=== PATIENT | female | born 1930 | race Caucasian/White ===

== ENCOUNTER 2017-05-07 11:41 | Emergency (ER) | payer MEDICARE, BC ==
--- NOTE | 2017-05-07 12:11 | EDM.PDOC ---
ED HPI GENERAL MEDICAL PROBLEM - General Chief Complaint: Abdominal Pain Stated Complaint: [id number] BAD PAIN IN RIGHT SIDE Time Seen by Provider: 05/07/17 12:04 Source of Information: Reports: Patient - History of Present Illness INITIAL COMMENTS - FREE TEXT/NARRATIVE: 86 yo white female c/o low abdomen pain since last night. Onset Date: 05/06/17 Onset Time: 12:00 Duration: Hour(s): Location: Reports: Abdomen Quality: Reports: Ache Severity: Moderate Associated Symptoms: Reports: No Other Symptoms Right Lower Abdomen Pain Score (Numeric/FACES): 3 - Related Data Allergies Allergy/AdvReac Type Severity Reaction Status Date / Time alendronate sodium Allergy Unknown UNKNOWN Verified 05/07/17 13:53 [From Fosamax] codeine Allergy Unknown UNKNOWN Verified 05/07/17 13:53 raloxifene HCl [From Evista] Allergy Unknown UNKNOWN Verified 05/07/17 13:53 risedronate sodium Allergy Unknown UNKNOWN Verified 05/07/17 13:53 [From Actonel] Sulfa (Sulfonamide Allergy Unknown UNKNOWN Verified 05/07/17 13:53 Antibiotics) Home Meds: Home Meds Lisinopril [Lisinopril] 10 mg PO DAILY 05/07/17 [History] Metoprolol Succinate [Toprol XL] 25 mg PO DAILY 05/07/17 [History] Triamcinolone Acetonide [Triamcinolone Acetonide 0.1% Oint] 1 dose TOP ASDIRECTED 05/07/17 [History] hydrOXYzine HCl [Atarax] 25 mg PO TID PRN 05/07/17 [History] Past Medical History HEENT History: Reports: None Cardiovascular History: Reports: Hypertension Respiratory History: Reports: None Gastrointestinal History: Reports: None Genitourinary History: Reports: None BACK PANEL PADDER History: Reports: None Musculoskeletal History: Reports: None Neurological History: Reports: None Psychiatric History: Reports: None Endocrine/Metabolic History: Reports: None Hematologic History: Reports: None Immunologic History: Reports: None Oncologic (Cancer) History: Reports: None Dermatologic History: Reports: None - Infectious Disease History Infectious Disease History: Reports: Chicken Pox, Measles, Mumps - Past Surgical History Head Surgeries/Procedures: Reports: None GI Surgical History: Reports: Cholecystectomy Social & Family History - Tobacco Use Smoking Status *Q: Never Smoker Second Hand Smoke Exposure: No - Caffeine Use Caffeine Use: Reports: Coffee, Soda - Recreational Drug Use Recreational Drug Use: No ED ROS GENERAL - Review of Systems Review Of Systems: See Below Constitutional: Reports: No Symptoms HEENT: Reports: No Symptoms Respiratory: Reports: No Symptoms Cardiovascular: Reports: No Symptoms Endocrine: Reports: No Symptoms GI/Abdominal: Reports: Abdominal Pain (low abdomen) : Reports: No Symptoms Musculoskeletal: Reports: No Symptoms Skin: Reports: No Symptoms Neurological: Reports: No Symptoms Psychiatric: Reports: No Symptoms Hematologic/Lymphatic: Reports: No Symptoms Immunologic: Reports: No Symptoms ED EXAM, GI/ABD - Physical Exam Exam: See Below Exam Limited By: No Limitations General Appearance: Alert, WD/WN, No Apparent Distress Eyes: Bilateral: EOMI Ears: Normal External Exam Nose: Normal Inspection Throat/Mouth: Normal Inspection Head: Atraumatic, Normocephalic Neck: Normal Inspection Respiratory/Chest: No Respiratory Distress, Lungs Clear Cardiovascular: Normal Peripheral Pulses, Regular Rate, Rhythm GI/Abdominal Exam: Tender (low abdomen ( LLQ)) Back Exam: Normal Inspection Extremities: Normal Inspection Neurological: Alert, Oriented, CN II-XII Intact Psychiatric: Normal Affect, Normal Mood Skin Exam: Warm, Dry Lymphatic: No Adenopathy Course - Vital Signs Last Recorded V/S: Last Vital Signs Temp 37.2 C 05/07/17 11:48 Pulse 110 H 05/07/17 11:48 Resp 16 05/07/17 11:48 BP 123/66 05/07/17 11:58 Pulse Ox 97 05/07/17 11:48 - Orders/Labs/Meds Orders: Active Orders 24 hr Category Date Time Status Sodium Chloride 0.9% [Normal Saline] 1,000 ml Med 05/07/17 12:15 Active IV ASDIRECTED Medication Orders Sodium Chloride (Normal Saline) 1,000 mls @ 75 mls/hr IV ASDIRECTED LUISA Last Admin: 05/07/17 12:27 Dose: 75 mls/hr Labs: Laboratory Tests 05/07/17 05/07/17 05/07/17 Range/Units 12:18 12:18 13:42 WBC 6.7 (5.0-10.0) 10^3/uL RBC 4.76 (4.2-5.4) 10^6/uL Hgb 13.7 (12.0-16.0) g/dL Hct 43.1 (37.0-47.0) % MCV 90.5 (80-100) fL MCH 28.8 (27.0-34.0) pg MCHC 31.8 L (33.0-35.0) g/dL Plt Count 188 (150-450) 10^3/uL Neut % (Auto) 70.8 (42.2-75.2) % Lymph % (Auto) 13.1 L (20.5-50.1) % [place] % (Auto) 12.1 H (2-8) % Eos % (Auto) 3.7 H (1.0-3.0) % Baso % (Auto) 0.3 (0.0-1.0) % Sodium 140 (135-145) mmol/L Potassium 4.4 (3.6-5.0) mmol/L Chloride 100 L (101-111) mmol/L Carbon Dioxide 28.0 (21.0-31.0) mmol/L Anion Gap 16.4 BUN 14 (7-18) mg/dL Creatinine 0.7 (0.6-1.3) mg/dL Est Cr Clr Drug Dosing 35.40 mL/min Estimated GFR (MDRD) > 60 BUN/Creatinine Ratio 20.00 Glucose 116 H (74-105) mg/dL Calcium 9.2 (8.4-10.2) mg/dl Total Bilirubin 0.9 (0.2-1.0) mg/dL AST 31 (10-42) IU/L ALT 38 (10-60) IU/L Alkaline Phosphatase 41 L (42-121) IU/L Total Protein 6.4 L (6.7-8.2) g/dl Albumin 3.8 (3.2-5.5) g/dl Globulin 2.6 Albumin/Globulin Ratio 1.46 Amylase 60 (28-100) U/L Lipase 27 (22-51) U/L Urine Color Light yellow (YELLOW) Urine Appearance Clear (CLEAR) Urine pH 7.0 (5.0-9.0) Ur Specific [place] 1.010 (1.005-1.030) Urine Protein Negative (NEGATIVE) Urine Glucose (UA) Negative (NEGATIVE) Urine Ketones Trace H (NEGATIVE) Urine Occult Blood Negative (NEGATIVE) Urine Nitrite Negative (NEGATIVE) Urine Bilirubin Negative (NEGATIVE) Urine Urobilinogen 0.2 (0.2-1.0) mg/dL Ur Leukocyte Esterase Trace H (NEGATIVE) Urine RBC 0-5 /HPF Urine WBC 0-5 (0-5/HPF) /HPF Ur Epithelial Cells Rare /HPF Urine Bacteria Few (0-FEW/HPF) /HPF Meds: Medications Generic Name Dose Route Start Last Admin Trade Name Freq PRN Reason Stop Dose Admin Sodium Chloride 1,000 mls @ 75 mls/hr 05/07/17 12:15 05/07/17 12:27 Normal Saline IV 75 mls/hr ASDIRECTED LUISA Administration Discontinued Medications Generic Name Dose Route Start Last Admin Trade Name Freq PRN Reason Stop Dose Admin Iopamidol 75 ml 05/07/17 13:08 05/07/17 15:06 Isovue-300 (61%) IVPUSH 05/07/17 13:09 75 ml ONETIME ONE Administration Departure - Departure Time of Disposition: 15:19 Disposition: DC/Tfer to Other 70 Condition: Fair Clinical Impression: Pain in the abdomen Qualifiers: Abdominal location: right lower quadrant Qualified Code(s): R10.31 - Right lower quadrant pain Lymphoma Qualifiers: Lymphoma type: unspecified type 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
[2017-05-07] MEDS ORDERED: Sodium Chloride 0.9% 1,000 ML IV SCH (12:15)
[2017-05-07 12:50] LABS: CHLORIDE,CL 100 mmol/L (101-111); SODIUM,NA 140 mmol/L (135-145)
[2017-05-07] MEDS ORDERED: Iopamidol 612 MG/ML 75 ML Bottle IVPUSH ONE (13:08)
[2017-05-07 15:31] VITALS: BP 125/53
== END 2017-05-07 16:02 | disposition other institution (70) ==
LOC: DL.ED 11:41
DX: R10.31 Right lower quadrant pain (principal); C85.93 Non-Hodgkin lymphoma, unspecified, intra-abdominal lymph nodes; I10 Essential (primary) hypertension; Z88.8 Allergy status to other drugs, medicaments and biological substances; Z88.5 Allergy status to narcotic agent; Z88.2 Allergy status to sulfonamides; Z79.899 Other long term (current) drug therapy; Z90.49 Acquired absence of other specified parts of digestive tract
CPT/HCPCS: 36415; 74177; 80053; 81001; 82150; 83690; 85025; 96360; 96361; 99285; J7030; Q9967; 99284

== ENCOUNTER 2017-05-25 10:43 | Emergency (ER) | payer MEDICARE, BC ==
[2017-05-25 11:37] VITALS: BP 138/66
[2017-05-25 12:37] LABS: CHLORIDE,CL 97 mmol/L (101-111); SODIUM,NA 135 mmol/L (135-145)
[2017-05-25] MEDS ORDERED: Sodium Chloride 0.9% 500 ML IV ONE (12:59)
[2017-05-25] MEDS ORDERED: Sodium Chloride 0.9% 10 ML Syringe FLUSH PRN (13:01)
--- NOTE | 2017-05-25 13:18 | EDM.PDOC ---
ED HPI GENERAL MEDICAL PROBLEM - General Chief Complaint: General Stated Complaint: NOT EATING, ? FLUIDS Time Seen by Provider: 05/25/17 13:30 Source of Information: Reports: Patient, Family, RN, RN Notes Reviewed History Limitations: Reports: No Limitations - History of Present Illness INITIAL COMMENTS - FREE TEXT/NARRATIVE: Patient brought to the ER by her son and daughter. Family states she has not been eating or drinking well the past week and they are concerned she may be getting dehydrated. Patient c/o right sided abdominal pain, and has had hives for 2 1/2 months (thought to be from the lymphoma). 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 She recently had a PET scan in which there was indication of recurrance of lymphoma in the spleen. She had a skin biopsy recently, and is scheduled for a splenic biopsy on Tuesday of this week. The family states they could only get the patient into the clinic today at 2pm, and they did not want to wait for that appointment. The family states the patient has been increasingly weaker of the past few weeks. Denies N/V/D, fever, chills, sob, chest pain. Onset: Gradual - Related Data Allergies Allergy/AdvReac Type Severity Reaction Status Date / Time alendronate sodium Allergy Unknown UNKNOWN Verified 05/25/17 11:37 [From Fosamax] codeine Allergy Unknown UNKNOWN Verified 05/25/17 11:37 raloxifene HCl [From Evista] Allergy Unknown UNKNOWN Verified 05/25/17 11:37 risedronate sodium Allergy Unknown UNKNOWN Verified 05/25/17 11:37 [From Actonel] Sulfa (Sulfonamide Allergy Unknown UNKNOWN Verified 05/25/17 11:37 Antibiotics) Home Meds: Home Meds Lisinopril [Lisinopril] 10 mg PO DAILY 05/07/17 [History] Metoprolol Succinate [Toprol XL] 25 mg PO DAILY 05/07/17 [History] Triamcinolone Acetonide [Triamcinolone Acetonide 0.1% Oint] 1 dose TOP ASDIRECTED 05/07/17 [History] hydrOXYzine HCl [Atarax] 10 mg PO TID PRN 05/07/17 [History] Ranitidine HCl [Ranitidine] 300 mg PO DAILY 05/25/17 [History] Past Medical History HEENT History: Reports: None Cardiovascular History: Reports: Hypertension Respiratory History: Reports: None Gastrointestinal History: Reports: None Genitourinary History: Reports: None GOLD ASSAYER History: Reports: None Musculoskeletal History: Reports: None Neurological History: Reports: None Psychiatric History: Reports: None Endocrine/Metabolic History: Reports: None Hematologic History: Reports: None Immunologic History: Reports: None Oncologic (Cancer) History: Reports: None Dermatologic History: Reports: None - Infectious Disease History Infectious Disease History: Reports: Chicken Pox, Measles, Mumps - Past Surgical History Head Surgeries/Procedures: Reports: None GI Surgical History: Reports: Cholecystectomy Social & Family History - Tobacco Use Smoking Status *Q: Never Smoker Second Hand Smoke Exposure: No - Caffeine Use Caffeine Use: Reports: None - Recreational Drug Use Recreational Drug Use: No ED ROS GENERAL - Review of Systems Review Of Systems: ROS reveals no pertinent complaints other than HPI. ED EXAM, GENERAL - Physical Exam Exam: See Below Exam Limited By: No Limitations General Appearance: Alert, WD/WN, No Apparent Distress Eye Exam: Bilateral Eye: Normal Inspection, PERRL Ears: Normal External Exam, Hearing Grossly Normal Nose: Normal Inspection Throat/Mouth: Normal Inspection, Normal Lips, Normal Teeth, Normal Gums, Normal Voice, No Airway Compromise Head: Atraumatic, Normocephalic Neck: Normal Inspection, Supple, Non-Tender, Full Range of Motion Respiratory/Chest: No Respiratory Distress, Lungs Clear, Normal Breath Sounds, No Accessory Muscle Use, Chest Non-Tender Cardiovascular: Normal Peripheral Pulses, Regular Rate, Rhythm, No Edema, No Gallop, No JVD, No Murmur, No Rub Peripheral Pulses: 2+: Radial (L), Radial (R) GI/Abdominal: Normal Bowel Sounds, Soft, Non-Tender, No Organomegaly, No Distention, No Abnormal Bruit, No Mass (Female) Exam: Deferred Rectal (Female) Exam: Deferred Back Exam: Normal Inspection, Decreased Range of Motion Extremities: Other (erythematous fine rash) Neurological: Alert, Oriented, Normal Cognition Psychiatric: Depressed Mood, Flat Affect Skin Exam: Warm, Dry, Erythema, Rash Lymphatic: No Adenopathy Course - Vital Signs Last Recorded V/S: Last Vital Signs Temp 98 F 05/25/17 11:30 Pulse 88 05/25/17 11:30 Resp 16 05/25/17 11:30 BP 138/66 05/25/17 11:30 Pulse Ox 97 05/25/17 11:30 - Orders/Labs/Meds Labs: Laboratory Tests 05/25/17 05/25/17 05/25/17 Range/Units 12:11 12:11 14:30 WBC 9.4 (5.0-10.0) 10^3/uL RBC 4.68 (4.2-5.4) 10^6/uL Hgb 13.5 (12.0-16.0) g/dL Hct 41.3 (37.0-47.0) % MCV 88.2 (80-100) fL MCH 28.8 (27.0-34.0) pg MCHC 32.7 L (33.0-35.0) g/dL Plt Count 252 (150-450) 10^3/uL Neut % (Auto) 70.7 (42.2-75.2) % Lymph % (Auto) 7.3 L (20.5-50.1) % [place] % (Auto) 12.2 H (2-8) % Eos % (Auto) 9.5 H (1.0-3.0) % Baso % (Auto) 0.3 (0.0-1.0) % Add Manual Diff Yes Neutrophils % (Manual) 67 (42-75) % Band Neutrophils % 3 % Lymphocytes % (Manual) 6 L (20-50) % Monocytes % (Manual) 12 H (2-8) % Eosinophils % (Manual) 11 H (1-3) % Basophils % (Manual) 1 Vacuolated Monocytes Few Toxic Granulation 1+ slight Platelet Estimate Adequate Elliptocytes Few Sodium 135 (135-145) mmol/L Potassium 4.4 (3.6-5.0) mmol/L Chloride 97 L (101-111) mmol/L Carbon Dioxide 28.0 (21.0-31.0) mmol/L Anion Gap 14.4 BUN 17 (7-18) mg/dL Creatinine 0.8 (0.6-1.3) mg/dL Est Cr Clr Drug Dosing 36.55 mL/min Estimated GFR (MDRD) > 60 BUN/Creatinine Ratio 21.25 Glucose 113 H (74-105) mg/dL Calcium 9.1 (8.4-10.2) mg/dl Total Bilirubin 0.6 (0.2-1.0) mg/dL AST 24 (10-42) IU/L ALT 38 (10-60) IU/L Alkaline Phosphatase 40 L (42-121) IU/L Total Protein 6.3 L (6.7-8.2) g/dl Albumin 3.2 (3.2-5.5) g/dl Globulin 3.1 Albumin/Globulin Ratio 1.03 Urine Color Yellow (YELLOW) Urine Appearance Slightly cloudy (CLEAR) Urine pH 5.5 (5.0-9.0) Ur Specific [place] 1.025 (1.005-1.030) Urine Protein Negative (NEGATIVE) Urine Glucose (UA) Negative (NEGATIVE) Urine Ketones 15 H (NEGATIVE) Urine Occult Blood Trace-lysed H (NEGATIVE) Urine Nitrite Negative (NEGATIVE) Urine Bilirubin Negative (NEGATIVE) Urine Urobilinogen 0.2 (0.2-1.0) mg/dL Ur Leukocyte Esterase Trace H (NEGATIVE) Urine RBC 0-5 /HPF Urine WBC 10-20 H (0-5/HPF) /HPF Ur Epithelial Cells Moderate H /HPF Amorphous Sediment Moderate H (0/HPF) /HPF Urine Bacteria Many H (0-FEW/HPF) /HPF Urine Mucus Moderate H /LPF Meds: Medications Discontinued Medications Generic Name Dose Route Start Last Admin Trade Name Freq PRN Reason Stop Dose Admin Sodium Chloride 500 mls @ 250 mls/hr 05/25/17 12:59 05/25/17 13:16 Normal Saline IV 05/25/17 14:58 250 mls/hr .BOLUS ONE Administration Sodium Chloride 10 ml 05/25/17 13:01 05/25/17 13:17 Saline Flush FLUSH 10 ml ASDIRECTED PRN Administration Keep Vein Open Departure - Departure Time of Disposition: 15:08 Disposition: Home, Self-Care 01 Condition: Fair, Undetermined Clinical Impression: Generalized weakness - Discharge Information Instructions: Weakness, [id number] Referrals: Babs Damico MD [Primary Care Provider] - Forms: ED Department Discharge Additional Instructions: Drink plenty of fluids. Follow up with appointment on Tuesday for biopsy. Follow up with primary care facility.
== END 2017-05-25 15:29 | disposition home or self-care (01) ==
LOC: DL.ED 10:43
DX: R53.1 Weakness (principal); I10 Essential (primary) hypertension; Z88.2 Allergy status to sulfonamides; Z88.8 Allergy status to other drugs, medicaments and biological substances; Z79.899 Other long term (current) drug therapy; Z90.49 Acquired absence of other specified parts of digestive tract
CPT/HCPCS: 36415; 80053; 81001; 85025; 96360; 96361; 99285; J7030; J7050; 99284